=== PATIENT | male | born 1960 | race Caucasian/White ===

== ENCOUNTER 2016-06-03 18:50 | Emergency (ER) | payer BC ==
[2016-06-03 19:02] VITALS: BP 145/85; PULSE 56; TEMP 97.6; BMI 33.9
[2016-06-03] MEDS ORDERED: ONDANSETRON 4 MG/2 ML VIAL IVPUSH ONE (19:02)
[2016-06-03] MEDS ORDERED: MECLIZINE HCL 25 MG TABLET (FP) PO ONE (19:02)
--- NOTE | 2016-06-03 19:03 | PDOC ---
History of Present Illness - General History Source: Patient Exam Limitations: No Limitations - History of Present Illness Initial Comments: 06/03/16 19:18 The patient is a 56 year old male, with no significant past medical history, who presents to the emergency department with complaints of vertigo and dizziness since 12:30 this morning. 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 He states that he felt that the room was spinning, and that when he walked he could not keep his equilibrium. The patient states that he tripped and fell as a result of the dizziness but did not hit his head. As he was driving home he reports the sensation that he felt like I was almost under the influence. The patient states that at the moment he feels nauseous and dizzy. He reports that his symptoms are alleviated by lying down and worsened when he stands up and tries to walk. He also reports associated blurred vision. Allergies: Penicillins Social history: Never smoked PCP: Dr. Jose Manuel Woo <Blanca Narvaez - Last Filed: 06/03/16 19:18> <Grabiel Meyers - Last Filed: 06/04/16 05:10> - General Chief Complaint: Lightheaded Stated Complaint: ROOM SPINNING Time Seen by Provider: 06/03/16 19:02 Past History <Blanca Narvaez - Last Filed: 06/03/16 19:18> - Past Medical History Disorders: Yes - Psycho/Social/Smoking Cessation Hx Anxiety: Yes Suicidal Ideation: No Smoking History: Never smoked Hx Alcohol Use: No Drug/Substance Use Hx: No Substance Use Type: None <Grabiel Meyers - Last Filed: 06/04/16 05:10> - Past Medical History Allergies/Adverse Reactions: Allergies Allergy/AdvReac Type Severity Reaction Status Date / Time Penicillins Allergy Severe Swelling Verified 06/03/16 18:55 Home Medications: Ambulatory Orders Meclizine HCl 25 mg PO TID PRN #15 tablet 06/03/16 Ondansetron [Zofran -] 4 mg PO TID PRN #15 tablet 06/03/16 Quetiapine Fumarate [Seroquel -] 200 mg PO HS 06/03/16 Tamsulosin HCl 0.4 mg PO HS 06/03/16 Review of Systems - Review of Systems Able to Perform ROS?: Yes Comments:: 06/03/16 19:18 GENERAL/CONSTITUTIONAL: No fever or chills. No weakness. HEAD, EYES, EARS, NOSE AND THROAT: +Blurred vision No ear pain or discharge. No sore throat. CARDIOVASCULAR: No chest pain or shortness of breath. RESPIRATORY: No cough, wheezing, or hemoptysis. GASTROINTESTINAL: +Nausea No vomiting, diarrhea or constipation. GENITOURINARY: No dysuria, frequency, or change in urination. MUSCULOSKELETAL: No joint or muscle swelling or pain. No neck or back pain. SKIN: No rash NEUROLOGIC: +Vertigo, +Dizziness, +Lightheadedness No headache, loss of consciousness, or change in strength/sensation. ENDOCRINE: No increased thirst. No abnormal weight change. HEMATOLOGIC/LYMPHATIC: No anemia, easy bleeding, or history of blood clots. ALLERGIC/IMMUNOLOGIC: No hives or skin allergy. <DaniellaMasoud agarwalie - Last Filed: 06/03/16 19:18> *Physical Exam - Vital Signs Last Vital Signs Temp Pulse Resp BP Pulse Ox 97.6 F 56 L 16 145/85 100 06/03/16 18:54 06/03/16 18:54 06/03/16 18:54 06/03/16 18:54 06/03/16 18:54 - Physical Exam Comments: 06/03/16 19:19 GENERAL: Awake, alert, and fully oriented, in no acute distress HEAD: No signs of trauma EYES: PERRLA, EOMI, sclera anicteric, conjunctiva clear ENT: Auricles normal inspection, hearing grossly normal, nares patent, oropharynx clear without exudates. Moist mucosa NECK: Normal ROM, supple, no lymphadenopathy, JVD, or masses LUNGS: Breath sounds equal, clear to auscultation bilaterally. No wheezes, and no crackles HEART: Regular rate and rhythm, normal S1 and S2, no murmurs, rubs or gallops ABDOMEN: Soft, nontender, normoactive bowel sounds. No guarding, no rebound. No masses EXTREMITIES: Normal range of motion, no edema. No clubbing or cyanosis. No cords, erythema, or tenderness NEUROLOGICAL: Cranial nerves II through XII grossly intact. Normal speech, normal gait Alert, awake, appropriate. Cranial nerves 2-12 intact. No deficits to light touch and temperature in face, upper extremities and lower extremities. No motor deficits in the in face, upper extremities and lower extremities. No pronator drift. Normoreflexic in the upper and lower extremities. Normal speech. Toes are downgoing bilaterally. Gait is normal without ataxia. No dysmetria. No dysdiadochokinesia. No skew deviation. No abnormal nystagmus. Rhomberg is +/-. Head thrust test is +/-. Dixs-Hallpike test is +/-. Absent: headache <Blanca Narvaez - Last Filed: 06/03/16 19:18> - Vital Signs Last Vital Signs Temp Pulse Resp BP Pulse Ox 97.6 F 56 L 16 145/85 100 06/03/16 18:54 06/03/16 18:54 06/03/16 18:54 06/03/16 18:54 06/03/16 18:54 <Grabiel Meyers - Last Filed: 06/04/16 05:10> Medical Decision Making - Medical Decision Making 06/04/16 05:09 please note all exams listed in scribe neuro note were negative [facility]: +2 OU cc VFF symptoms improved after medication in ED a/p no rfs for central process symptomatic mgmt <Grabiel Meyers - Last Filed: 06/04/16 05:10> *DC/Admit/Observation/Transfer - Attestations Scribe Attestion: 06/03/16 19:20 Documentation prepared by ROBERT Kenney, acting as medical examiner for Grabiel Meyers MD. <Blanca Narvaez - Last Filed: 06/03/16 19:18> <Graibel Meyers - Last Filed: 06/04/16 05:10> Diagnosis at time of Disposition: Labyrinthitis Qualifiers: Laterality: bilateral Qualified Code(s): H83.03 - Labyrinthitis, bilateral - Discharge Dispostion Disposition: HOME Condition at time of disposition: Good - Prescriptions Prescriptions: Meclizine HCl 25 mg PO TID PRN #15 tablet PRN Reason: dizziness Ondansetron [Zofran -] 4 mg PO TID PRN #15 tablet PRN Reason: Nausea - Referrals Referrals: Jose Carlos Dunn MD [Staff Physician] - 2 Days - Patient Instructions Printed Discharge Instructions: Vertigo - Post Discharge Activity Work/School Note: Back to Work
[2016-06-03] MEDS ORDERED: MECLIZINE HCL 25 MG TABLET (FP) ONE (19:04)
[2016-06-03] MEDS ORDERED: ONDANSETRON 4 MG/2 ML VIAL ONE (19:04)
[2016-06-03] MEDS ORDERED: METOCLOPRAMIDE HCL INJECTION 10 MG/2 ML VIAL IVPB ONE (20:38)
== END 2016-06-03 21:59 | disposition home or self-care (01) ==
LOC: FER 18:50
PROC: 3E033GC Introduction of Other Therapeutic Substance into Peripheral Vein, Percutaneous Approach (ICD-10-PCS; principal; 2016-06-03)
DX: H83.03 Labyrinthitis, bilateral (principal)
CPT/HCPCS: 99282-25